=== PATIENT | male | born 1980 | race African-American/Black ===

== ENCOUNTER 2016-10-13 04:51 | Inpatient (IN) | payer BC ==
[~2016-10-13] VITALS: Ht 175.3 cm; Wt 68.0 kg
--- NOTE | 2016-10-13 05:00 | NUR ---
To bed 7 a 36 yo male bibself with c/o of n/v since sunday and said, "I cant keep anything down." Patient aaox4, ambulatory. No s/s of acute distress. Tachycardic at 105-120. Nondiaphoretic. 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 Initiated comfort measures. Gowed. cafeteria monitor on. Dr Byers at bedside for eval.
--- NOTE | 2016-10-13 05:10 | NUR ---
started a saline lock on the lac g18, blood drawn and sent to lab.
[2016-10-13] MEDS ORDERED: METOCLOPRAMIDE HCL 10 MG/2 ML VIAL ONE ×2 (05:13→21:13)
[2016-10-13] MEDS ORDERED: diphenhydrAMINE HCL 50 MG/ML VIAL ONE (05:13)
[2016-10-13] MEDS ORDERED: IV SET PRIMARY 1 EA INFUS.SET MC ONE (05:14)
[2016-10-13] MEDS ORDERED: IV NS 0.9% 2,000 ML ONE (05:14)
[2016-10-13] MEDS ORDERED: ONDANSETRON HCL/PF 4 MG/2 ML VIAL ONE (05:14)
[2016-10-13] MEDS ORDERED: ONDANSETRON HCL/PF 4 MG/2 ML VIAL IVP ONE (05:30)
[2016-10-13] MEDS ORDERED: IV NS 0.9% 1,000 ML BAG IV ONE (05:30)
[2016-10-13] MEDS ORDERED: diphenhydrAMINE HCL 50 MG/ML VIAL IV ONE (05:30)
[2016-10-13] MEDS ORDERED: METOCLOPRAMIDE HCL 10 MG/2 ML VIAL IV ONE (05:30)
[2016-10-13 05:34] LABS: ABG BASE EXCESS 4.3 mmol/L; ABG OXYGEN SATURATION 79.2 % (92.0-98.5); ABG PCO2 47.1 mmHg (35.0-45.0); ABG PH 7.417 (7.350-7.450); ABG PO2 44.2 mmHg (75.0-100.0); ABG TOTAL HEMOGLOBIN 14.6 G/dL (13.5-18.0); COHb 1.5 % (0.5-1.5); MetHb 0.9 % (0.0-1.5); O2Hb 77.3 % (94.0-97.0)
[2016-10-13 05:40] LABS: CALCIUM, SERUM 9.6 mg/dL (8.5-10.1); CREATININE 1.2 mg/dL (0.6-1.3); POTASSIUM 3.6 mmol/L (3.5-5.1)
[2016-10-13 05:41] LABS: BASOPHILS % (AUTO) 0.2 % (0.0-2.0); HEMATOCRIT 45 % (39-51); HEMOGLOBIN 15.4 g/dL (13.5-17.5); LYMPHOCYTES # (AUTO) 1.2 /CMM (0.8-4.8); LYMPHOCYTES % (AUTO) 16.8 % (20.0-44.0); MEAN CORPUSCULAR HEMOGLOBIN 31 PG (26.0-33.0); MEAN CORPUSCULAR HGB CONC 34 g/dl (31.0-36.0); MEAN CORPUSCULAR VOLUME 90 fL (80-96); MONOCYTES # (AUTO) 0.5 /CMM (0.1-1.30); MONOCYTES % (AUTO) 7.4 % (2.0-12.0); NEUTROPHILS # (AUTO) 5.4 /CMM (1.8-8.9); NEUTROPHILS % (AUTO) 75.6 % (43.0-81.0); PLATELET COUNT (AUTO) 240 /CMM (150-450); RDW COEFFICIENT OF VARIATION 12.2 (11.5-15.0); RED BLOOD CELL COUNT(AUTO) 5.01 MIL/uL (4.5-6.0); WHITE BLOOD COUNT (AUTO) 7.2 K/uL (4.3-11.0)
[2016-10-13 05:47] LABS: ALBUMIN 4.4 g/dL (3.4-5.0); BILIRUBIN,DIRECT 0.2 mg/dL (0.0-0.2); BILIRUBIN,TOTAL 1.2 mg/dL (0.2-1.0); TOTAL PROTEIN, SERUM 8.8 g/dL (6.4-8.2)
[2016-10-13 05:48] LABS: LIPASE 42 U/L (73-393); TROPONIN I < 0.017 ng/mL (0.00-0.056)
--- NOTE | 2016-10-13 05:53 | NUR ---
PANEL PAGED, BECKA BOUCHER TRANSFERED TO DR. SANCHEZ
--- NOTE | 2016-10-13 05:54 | NUR ---
DR. SANCHEZ SPOKE TO DR BOUCHER REGARDING ADMISSION.
--- NOTE | 2016-10-13 05:58 | NUR ---
ASSIGNED [phone]
--- NOTE | 2016-10-13 06:05 | NUR ---
Report given to Eleni GAONA for osorio.
[2016-10-13] MEDS ORDERED: *INS REG3 SUBCUT (06:10)
[2016-10-13 06:33] LABS: APPEARANCE,URINE CLEAR (CLEAR); BILIRUBIN,URINE NEGATIVE (NEGATIVE); BLOOD, URINE 1+ Ery/uL (NEGATIVE); COLOR,URINE YELLOW (YELLOW); PROTEIN,URINE 2+ mg/dl (NEGATIVE); UGLUCOSE 3+ mg/dL (NEGATIVE)
[2016-10-13 06:34] LABS: KETONES,URINE 2+ (NEGATIVE); LEUKOCYTE ESTERASE ,URINE NEGATIVE (NEGATIVE); NITRITE, URINE NEGATIVE (NEGATIVE)
[2016-10-13 06:40] LABS: ADD URINE CULTURE NO; BACTERIA,URINE None seen /HPF (None Seen); SQUAMOUS EPITHELIAL CELL,UR Rare /HPF (None Seen); WBC,URINE 0-2 /HPF (0-3)
--- NOTE | 2016-10-13 07:56 | NUR ---
RN AM NOTES RECEIVED PATIENT IN BED ASLEEP, BUT EASILY AROUSABLE. ALERT AND ORIENTED X 4. NO COMPLAINTS OF NAUSEA, VOMITING OR PAIN. NEW ADMIT 0645 THIS AM. WILL FOLLOW UP WITH MD FOR MED REC. WILL CONTINUE TO MONITOR.
[2016-10-13 08:00] VITALS: BP_SYST 113; BP_SYST 156; BP_DIAS 101; BP_DIAS 65
[2016-10-13] MEDS ORDERED: INSU100V27 SQ (08:13)
[2016-10-13] MEDS ORDERED: INSU200I4 SQ (08:13)
[2016-10-13 16:00] VITALS: BP 126/91
--- NOTE | 2016-10-13 18:44 | NUR ---
RN PM NOTES PATIENT IN BED, ABLE TO AMBULATE WITH BATHROOM PRIVILEGES TOLERATED. COMPLAINTS OF FAINT NAUSEA AND PAIN, RELIEVED BY REPOSITIONING. ABLE TO TOLERATE CLEAR LIQUIDS, BUT NOT REGULAR DIET YET. WILL ENDORSE TO NEXT SHIFT.
[2016-10-13 20:00] VITALS: BP 143/104
--- NOTE | 2016-10-13 20:20 | NUR ---
paged [facility], Dr Antonio curator of education ,pt has no admitting orders, pt is diabetic ,nauseated ,not on any iv fluids.check BG and 169mg/dl resulted. awaiting for orders
[2016-10-13] MEDS ORDERED: ZOLPIDEM TARTRATE 5 MG TABLET PO PRN (21:00)
[2016-10-13] MEDS ORDERED: ACETAMINOPHEN 325 MG TABLET PO PRN (21:00)
[2016-10-13] MEDS ORDERED: ONDANSETRON HCL/PF 4 MG/2 ML VIAL IVP PRN (21:00)
--- NOTE | 2016-10-13 21:10 | NUR ---
noted Dr. Antonio placed orders and carried out.
[2016-10-13] MEDS ORDERED: ZOLPIDEM TARTRATE 5 MG TABLET ONE (21:14)
[2016-10-13] MEDS: METOCLOPRAMIDE HCL 10 MG/2 ML VIAL IV SCH (21:18)
[2016-10-14] MEDS ORDERED: METOCLOPRAMIDE HCL 10 MG/2 ML VIAL ONE (02:53)
[2016-10-14] MEDS: METOCLOPRAMIDE HCL 10 MG/2 ML VIAL IV SCH ×3 (02:57→14:55)
[2016-10-14 06:50] LABS: BASOPHILS % (AUTO) 0.3 % (0.0-2.0); HEMATOCRIT 39 % (39-51); HEMOGLOBIN 13.3 g/dL (13.5-17.5); LYMPHOCYTES # (AUTO) 1.4 /CMM (0.8-4.8); LYMPHOCYTES % (AUTO) 26.7 % (20.0-44.0); MEAN CORPUSCULAR HEMOGLOBIN 31 PG (26.0-33.0); MEAN CORPUSCULAR HGB CONC 34 g/dl (31.0-36.0); MEAN CORPUSCULAR VOLUME 89 fL (80-96); MONOCYTES # (AUTO) 0.4 /CMM (0.1-1.30); MONOCYTES % (AUTO) 8.1 % (2.0-12.0); NEUTROPHILS # (AUTO) 3.5 /CMM (1.8-8.9); NEUTROPHILS % (AUTO) 64.9 % (43.0-81.0); PLATELET COUNT (AUTO) 204 /CMM (150-450); RDW COEFFICIENT OF VARIATION 11.8 (11.5-15.0); RED BLOOD CELL COUNT(AUTO) 4.36 MIL/uL (4.5-6.0); WHITE BLOOD COUNT (AUTO) 5.3 K/uL (4.3-11.0)
--- NOTE | 2016-10-14 06:55 | NUR ---
pt with nausea, vomits with mostly saliva, pt didn't eat dinner food tray untouched, pt only takes sips and ice chips, reglan given ATC q6hrs.denies any pain, slept well.
[2016-10-14 07:12] LABS: ALBUMIN 3.6 g/dL (3.4-5.0); BILIRUBIN,TOTAL 1.1 mg/dL (0.2-1.0); CALCIUM, SERUM 8.9 mg/dL (8.5-10.1); CREATININE 0.9 mg/dL (0.6-1.3); MAGNESIUM 2.6 mg/dL (1.8-2.4); POTASSIUM 3.8 mmol/L (3.5-5.1); TOTAL PROTEIN, SERUM 7.2 g/dL (6.4-8.2)
[2016-10-14 07:16] LABS: THYROID STIMULATING HORMONE 1.932 uIU/mL (0.358-3.74)
--- NOTE | 2016-10-14 07:56 | NUR ---
RN INITIAL NOTES RECEIVED PT AWAKE AND ALERT WITH NAD. NO N/V NOTED; PT DENIES ANY PAIN AT THIS TIME. IVHL IN PLACE. PT AMBULATORY WITH STEADY GAIT; SAFETY ENSURED. WILL MONITOR.
[2016-10-14 08:00] VITALS: BP 127/87
[2016-10-14] MEDS ORDERED: INSULIN REGULAR, HUMAN 100 UNIT/ML 3 ML VIAL SQ PRN (09:00)
[2016-10-14] MEDS ORDERED: *INSULIN REGULAR(HUMULIN R)HUM 100 UNIT/ML VIAL SQ PRN (09:00)
[2016-10-14] MEDS ORDERED: METFORMIN 500 MG TABLET PO SCH (09:00)
[2016-10-14] MEDS ORDERED: DEXTROSE 50%-WATER 50 ML DISP.SYRIN IV PRN (09:00)
[2016-10-14] MEDS ORDERED: BLOOD SUGAR DIAGNOSTIC 1 EACH STRIP VI SCH (12:00)
--- NOTE | 2016-10-14 15:46 | NUR ---
RN DC NOTES DISCHARGE INSTRUCTIONS GIVEN TO THE PT; VERBALIZED UNDERSTANDING. IVHL REMOVED, NO BLEEDING COVERED WITH CLEAN AND DRY DRESSING. NO C/O PAIN MADE, NO N/V NOTED. DC PAPERS SIGNED. PT LEFT UNIT AMBULATORY ACCOMPANIED BY FALGUNI ARAIZA IN STABLE CONDITION; WRIST BAND REMOVED. DISCHARGED ORDERED
== END 2016-10-14 15:46 | disposition home or self-care (01) | DRG 392 ==
LOC: ER 04:53 → TELE 06:06 → MED 18:17
PROVIDERS: ADMIT Nurse Practitioner Acute Care; ATTEND Nurse Practitioner Acute Care
DX: A08.4 Viral intestinal infection, unspecified (principal); E86.9 Volume depletion, unspecified; Z79.4 Long term (current) use of insulin; E87.8 Other disorders of electrolyte and fluid balance, not elsewhere classified; R51 Headache; E10.9 Type 1 diabetes mellitus without complications; R79.89 Other specified abnormal findings of blood chemistry
CPT/HCPCS: 36415; 36600; 71010-TC; 80048-TC; 80053-TC; 80061-TC; 80076-TC; 81000-TC; 82962-TC; 83690-TC; 83735-TC; 84100-TC; 84443-TC; 84484-TC; 85025-TC; 87081-TC; A4606; J1200; J1815; J2405; J2765; J7030; Z7610